=== PATIENT | female | born 1950 | race African-American/Black ===

== ENCOUNTER 2016-12-29 08:21 | Day surgery (SDC) | payer OTHER ==
[2016-12-28 17:39] VITALS: BMI 17.6
[2016-12-29 09:10] VITALS: TEMP 98.4
[2016-12-29 16:56] VITALS: BP 133/54; PULSE 66
--- NOTE | 2016-12-30 15:58 | PATH ---
Surgical Pathology Report Patient Name: [facility]. Rec. #: [id number] /Age/Gender: 1950 (Age: 66) / F Account: [id number] Location: RADIOLOGY Taken: 12/29/2016 Received: 12/29/2016 Reported: 12/30/2016 Physicians: Gayla Lawrence M.D. Specimen(s) Received LUNG BIOPSY Clinical History 66 year-old female smoker with 1.3 cm left upper lobe lung nodule Final Diagnosis LUNG, LEFT UPPER LOBE, CT GUIDED CORE BIOPSY: BENIGN PULMONARY TISSUE WITH FOCI OF NON-SPECIFIC FIBROSIS AND REACTIVE LYMPHOID AGGREGATE. NO CARCINOMA IDENTIFIED IN THE EXAMINED MATERIAL. Electronically Signed Cristino Branch M.D. Gross Description Received in formalin labeled "left lung biopsy" is a 0.3 x 0.3 x 0.1 cm aggregate of ponce soft tissue fragments. The formalin is filtered and the specimen is entirely submitted in one cassette. /12/29/2016 saudi12/29/2016
== END 2016-12-29 17:05 | disposition home or self-care (01) ==
LOC: JRADIR 08:21
PROVIDERS: ATTEND Internal Medicine
PROC: BB28ZZZ Computerized Tomography (CT Scan) of Left Tracheobronchial Tree (ICD-10-PCS; principal; 2016-12-29)
PROC: 0BBG3ZX Excision of Left Upper Lung Lobe, Percutaneous Approach, Diagnostic (ICD-10-PCS; 2016-12-29)
DX: D38.1 Neoplasm of uncertain behavior of trachea, bronchus and lung (principal); D14.32 Benign neoplasm of left bronchus and lung
CPT/HCPCS: 71010-TC; 71020-TC; 77012-TC; 88305-TC